=== PATIENT | female | born 2000 | race Caucasian/White ===

== ENCOUNTER 2019-07-22 01:50 | Emergency (ER) | payer MEDICAID, OTHER ==
[~2019-07-22] VITALS: Ht 167.6 cm; Wt 101.8 kg
[~2019-07-22 01:50] MED LIST: CEPH-443 PO; IBUP-1542 PO; ONDA4TAB8 PO
[2019-07-22 01:53] VITALS: Ht 167.6 cm; Wt 101.8 kg
[2019-07-22] MEDS ORDERED: SODIUM CHLORIDE 0.9% 1L BAG IV* STA (01:58)
[2019-07-22] MEDS ORDERED: CEFTRIAXONE 1 GM/50 ML (PMX) 50 ML IVPB ONE (02:00)
[2019-07-22] MEDS ORDERED: IBUPROFEN 600 MG TAB PO ONE (02:00)
[2019-07-22] MEDS ORDERED: ONDANSETRON 4 MG INJ ONE (03:13)
[2019-07-22 04:08] VITALS: BP 127/54; PULSE 88; RESP 16
== END 2019-07-22 04:29 | disposition home or self-care (01) ==
LOC: E/R 01:50
DX: O86.20 Urinary tract infection following delivery, unspecified (principal); B96.89 Other specified bacterial agents as the cause of diseases classified elsewhere; R06.02 Shortness of breath
CPT/HCPCS: 36415; 71045; 80053; 81001; 83605; 83690; 83880; 84484; 85025; 85610; 85730; 87040; 87086; 93005; 96374; J0696; J2405; J7030; Z7502; Z7610